=== PATIENT | male | born 1935 | race Caucasian/White ===

== ENCOUNTER → 2017-04-15 | Day surgery (SDC) | payer OTHER ==
[~2017-04-15] VITALS: Ht 172.7 cm; Wt 85.6 kg
[~2017-04-15] MED LIST: ACETAMINOPHEN 1000 MG/100 ML VIAL IV ONE; ACETAMINOPHEN/HYDROcodone 325 MG/5 MG TAB PO PRN; CEPH-459 PO; CHLORHEXIDINE GLUCONATE 2 % 1 PACK (2 CLOTHS) TOPICAL PRN; DO NOT ADM ANY ANTICOAGULANT DRUGS PRN; HYDROmorphone HCL PF 2 MG/ML VIAL ONE; INSULIN HUMAN REGULAR 1,000 UNITS/10 ML VIAL SQ PRN; LACTATED RINGER'S 1000 ML IV PRN; MAGNSOL2 PO; METOPROLOL TARTRATE 25 MG TAB PO PRN; MIRA3350 PO; MULTTAB67 PO; NORC5TAB PO; ONDANSETRON HCL 4 MG/2 ML VIAL IV PUSH ONE; ONDANSETRON HCL 4 MG/2 ML VIAL IV PUSH PRN; POVIDONE IODINE 5% (ANTISEPSIS KIT) 4 APPLICATIONS EACH NARE PRN; PROPOFOL 200 MG/20 ML AMP IV ONE; SODIUM CHLORID 0.9% 500 ML IV PRN; ceFAZolin 2 GM PREMIX 50 ML IV SCH; ePHEDrine/NS 25 MG/5 ML SYR IV ONE
[2017-04-15 08:20] VITALS: BP 138/78; PULSE 63; RESP 16; TEMP 98.2; O2SAT 99
[2017-04-15 08:44] LABS: EOSINOPHIL # 0.5 TH/MM3 (0-0.4); EOSINOPHIL % 9.2 % (0.0-4.0); HEMATOCRIT 37.2 % (39.0-51.0); HEMO FLAGS DIFF FINAL; LYMPH % 22.6 % (9.0-44.0); LYMPHOCYTE # 1.1 TH/MM3 (1.0-4.8); MEAN CELL VOLUME 90.2 FL (80.0-100.0); MEAN CORPUSCULAR HEMOGLOBIN 30.9 PG (27.0-34.0); MEAN CORPUSCULAR HGB CONC 34.3 % (32.0-36.0); MONO % 8.9 % (0.0-8.0); NEUT % 58.3 % (16.0-70.0); PLATELET COUNT 183 TH/MM3 (150-450); RED BLOOD COUNT 4.13 MIL/MM3 (4.50-5.90); RED CELL DISTRIBUTION WIDTH 12.8 % (11.6-17.2); WHITE BLOOD COUNT 5.1 TH/MM3 (4.0-11.0)
--- NOTE | 2017-04-15 11:02 | PD.OP ---
Operative Report Date of Surgery: Apr 15, 2017 Preoperative Diagnosis: (1) Bladder calculus (2) History of bladder cancer Postoperative Diagnosis: (1) Bladder calculus (2) History of bladder cancer Procedure: Cystoscopy, endoscopic removal of bladder calculus and bladder biopsy with fulguration Anesthesia: General Surgeon: Neo Warner Strand Galvanizer(s): None Operation and Findings: Indication for procedure: Case of a pleasant 81 year-old gentleman with history both prostate and bladder cancer who is status post recent cystoscopic evaluation that demonstrated multiple bladder diverticula with a calculus in one of the diverticulum and a small growth in a different bladder diverticulum. Presents today for cystoscopy with removal bladder calculus and bladder biopsy with fulguration. Operative procedure in detail: Patient was brought to the operating room suite and placed supine on the OR table. He was then placed under general anesthesia. He was then repositioned in the dorsal lithotomy position and prepped and draped in normal sterile fashion. After an appropriate timeout was undertaken I proceeded with cystoscopic evaluation utilizing the rigid cystoscope with a 20 Chinese sheath and the 30 lens. The urethra was patent without stricture formation, the prostatic urethra had some enlargement to the lateral lobes and elevation of the bladder neck region. Further passive cystoscope within the urinary bladder once again demonstrated both right and left ureteral orifices to be in correct anatomic position effluxing clear yellow urine. There are multiple bladder diverticula noted predominantly on the right side and one of the diverticula had a small bladder stone measuring less than 1 cm. A secondary bladder diverticulum had a small frondular lesion noted. The flexible forceps were utilized in the bladder calculus was extracted under direct vision without difficulty. I next proceeded with biopsy and fulguration of the small bladder mass. The cystoscope was withdrawn and a 16 Chinese 10 cc Arango catheter was placed and connected to gravity drainage. The patient tolerated the procedures without complications and was transferred to the PACU in satisfactory condition. Neo Warner MD Apr 15, 2017 11:02
[2017-04-15 12:55] VITALS: BP 154/86; PULSE 60; RESP 18; TEMP 97.6; O2SAT 100
--- NOTE | 2017-04-16 07:42 | EKG ---
Date Performed: 04/15/2017 Time Performed: 07:59:49 PTAGE: 81 years EKG: Sinus rhythm WITH SINUS ARRHYTHMIA NORMAL ECG PREVIOUS TRACING : 02/27/2016 06.50 DOCTOR: Obdulia Yates Interpretating Date/Time 04/16/2017 07:40:42
== END | disposition home or self-care (01) ==
LOC: HSDC 07:17
PROVIDERS: ATTEND Urology
DX: N30.20 Other chronic cystitis without hematuria (principal); N21.0 Calculus in bladder; N32.3 Diverticulum of bladder; I49.8 Other specified cardiac arrhythmias; Z85.51 Personal history of malignant neoplasm of bladder
CPT/HCPCS: 00910; 52224; 85025; 88305; 93005; J0131; J0690; J1170; J2405; J7120